=== PATIENT | female | born 1980 | race Caucasian/White ===

== ENCOUNTER 2019-09-03 18:17 | Emergency (ER) | payer SELFPAY ==
--- NOTE | ~2019-09-03 | XR_ITS ---
EXAMINATION: XR knee LT min 4V DATE: 09/03/2019 18:50 INDICATION: Left knee pain, initial encounter TECHNIQUE: Four views of the left knee were obtained. COMPARISON: None. FINDINGS: There is an acute, traumatic, transverse fracture of the inferior pole of the patella. No a dditional acute osseous findings are evident. There is moderate size knee joint effusion. Soft tissue swelling overlies the lower patella. IMPRESSION: 1. Acute transverse fracture of the inferior patella with associated knee joint effusion. Reviewed, dictated and finalized at location A.
[2019-09-03 18:23] VITALS: BP 136/85; PULSE 100; RESP 20; TEMP 36.5; O2SAT 100
--- NOTE | 2019-09-03 18:29 | ED.LOWEXIN ---
HPI - Extremity Injury (Lower) General Chief Complaint: Extremity Injury, Lower Stated Complaint: left knee injury causing swelling Time Seen by Provider: 09/03/19 18:29 Source: patient and RN notes reviewed History of Present Illness HPI Narrative: Patient is a 39-year-old female presents the urgent care with complaints of left knee pain. Patient states that she fell 4 days ago and landed on the left knee. Patient states she now has increased pain and swelling into the left lower leg. Patient states she was wearing high stiletto heels at the time and fell onto the concrete. Patient has been using ice, elevation, Tylenol, ibuprofen, Advil. Patient states that nothing relieves her pain . Patient states that she has been using a hinged knee brace from [employer] for support. No other acute complaints. No acute distress noted. Patient read the plan of care. Related Data Allergies Allergy/AdvReac Type Severity Reaction Status Date / Time tramadol Allergy Intermediate ITCHING, Verified 01/16/19 18:43 THROAT SWELLS amoxicillin Allergy Unknown Rash Verified 01/16/19 18:43 cefaclor Allergy Unknown Verified 01/16/19 18:43 Penicillins Allergy Unknown Unknown Verified 01/26/19 20:05 Review of Systems Review of Systems: Narrative: CONSTITUTIONAL: Denies fever, chills, or sweats. EYES: Denies visual changes, redness, or discharge. ENT: Denies rhinorrhea, congestion, sore throat, or otalgia. CARDIOVASCULAR: Denies chest pain, palpitations, or edema. RESPIRATORY: Denies cough or dyspnea. GASTROINTESTINAL: Denies abdominal pain, nausea, vomiting, or diarrhea. GENITOURINARY: Denies dysuria or hematuria. SKIN: Denies rash or itching. MUSCULOSKELETAL: Reports of left knee pain and swelling NEUROLOGIC: Denies headache, numbness, or weakness. All other systems reviewed are negative, except as documented in HPI. PMFSH Social History Social History Smoking status: Current every day smoker Comments At the time of my signature, I reviewed and agree with the nursing past medical, surgical, social, and family history. There is no relevant family history pertinent to the patient complaint. Exam Narrative: Exam Narrative: GENERAL: This is a well-nourished, well-developed patient, in no apparent distress. HEAD: normocephalic, atraumatic. EYES: PERRL. Sclera clear/white. Vision is grossly intact. EARS: External ears normal NOSE: External nose normal with no obvious nasal discharge THROAT: Mucous membranes moist NECK: Neck supple CARDIOVASCULAR: Regular rate and rhythm without murmurs, gallops, or rubs. RESPIRATORY: Clear to auscultation. Breath sounds equal bilaterally. No wheezes, rales, or rhonchi. SKIN: Scabbed 2 cm diameter wound noted over the anterior aspect of the left knee. Warm, intact with no suspicious lesions or rash, good texture and turgor. NEURO: awake, alert, and oriented to person, place and time. There were no obvious focal neurologic abnormalities. EXTREMITIES: Mild to moderate diffuse left knee edema and tenderness. Range not tested due to pain. Homans sign negative. Positive strong left pedal pulse Course Vital Signs Vital signs: Vital Signs Temperature 97.7 F 09/03/19 18:23 Pulse Rate 100 09/03/19 18:23 Respiratory Rate 20 09/03/19 18:23 Blood Pressure 136/85 09/03/19 18:23 Pulse Oximetry 100 09/03/19 18:23 Temperature 97.7 F 09/03/19 18:23 Pulse Rate 100 09/03/19 18:23 Respiratory Rate 20 09/03/19 18:23 Blood Pressure 136/85 09/03/19 18:23 Pulse Oximetry 100 09/03/19 18:23 Reviewed MDM - Extremity Injury (Lower) MDM Narrative Medical decision making narrative: Reviewed x-ray results with the patient. She is aware the x-ray was positive for any fracture. Patient states that she wishes to use the splint that she has at home and given a Calixto wrap. Patient does not wish to have the leg splinted or use our immobilizer. Patient also does not wish to have crutches. Ad
== END 2019-09-03 19:20 | disposition home or self-care (01) ==
PROVIDERS: Emergency Provider Nurse Practitioner Family
DX: S82.035A Nondisplaced transverse fracture of left patella, initial encounter for closed fracture (principal); W19.XXXA Unspecified fall, initial encounter; J45.909 Unspecified asthma, uncomplicated
CPT/HCPCS: 73564; 99214; G0463